=== PATIENT | male | born 1965 | race Caucasian/White ===

== ENCOUNTER 2024-02-13 20:53 | Emergency (ER) | payer BC, SELFPAY ==
[2024-02-13 21:18] VITALS: BP 130/54; PULSE 74; RESP 16; TEMP 37.3; O2SAT 98
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
--- OUTSIDE RECORDS SUMMARY | 2024-02-13 21:38 | XMS_ITS | Patient Health Record ---
Author Organization [facility] Address [address] [address] Care Team Providers Care Merchandising Consultant Name Role Phone None, None Primary Care Provider Unavailabl e ALLERGIES Allergen (clinical drug ingredient) Drug/Non Drug Allergy documented on EMR Reaction Allergy Type Onset Date Status Bee Sting anaphylaxis Allergy Active REASON FOR REFERRAL No Information PLAN OF TREATMENT No Information Insurance Providers Payer Name Payer Address Payer Phone Subscriber Number Group Number Insured Name Patient Relationship to Insured Coverage Start Date Coverage End Date [facility] [address] [place], [place] [id number] Jae Kraus Self - patient is the insured 0 MEDICAL (GENERAL) HISTORY Medical History History ICD Code *No Significant Medical History
--- OUTSIDE RECORDS SUMMARY | 2024-02-13 21:38 | XMS_ITS | Patient Health Record ---
Author Organization [facility] Address [address] [place] [phone] Care Team Providers Care Eligibility Services Representative Name Role Phone Amelia Gallego Primary Care Provider Amarilisa Adela Frances Unavailable Reason For Referral No Information Medications Medication SIG (Take, Route, Frequency, Duration) Notes Start Date End Date Status Suprep lkirgp-wduxtroim-ed gnesium/ sulfate 1 bottle as directed PO 2 dose prep for 1 day *please review for potential update for e-prescription and drug interaction check* 08/05/2017 Active Problems Problem Type SNOMED Code ICD Code Onset Dates Problem Status W/U Status Risk Notes Problem Preprocedural examination (814316202485453) Preprocedural examination (Z01.818) Active confirmed Problem Hemorrhoids (11492618) Hemorrhoids-other (K64.8) Active confirmed Plan Of Treatment Pending Test Test Name Order Date Colonoscopy 08/05/2017 Insurance Providers Payer Name Payer Address Payer Phone Subscriber Number Group Number Insured Name Patient Relationship to Insured Coverage Start Date Coverage End Date [employer] [place] [address] [place] [address] [id number] Jose Juan Kraus Self - patient is the insured Medical (General) History Medical History History ICD Code high cholesterol Surgical History Surgery Date(Month/Year) broken wrist knee surgery
[2024-02-13 22:25] VITALS: BP 123/93; PULSE 82; RESP 14; TEMP 36.6; O2SAT 97
[2024-02-14] MEDS: Acetaminophen 500 MG TAB 1000 MG PO (00:07)
[2024-02-14] MEDS: Ibuprofen 800 MG TAB PO (00:07)
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
[2024-02-14 01:36] VITALS: BP 129/78; PULSE 68; RESP 16; TEMP 36.8; O2SAT 99
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
== END 2024-02-14 02:48 | disposition home or self-care (01) ==
PROVIDERS: Emergency Provider Student in an Organized Health Care Education/Training Program
DX: S42.031A Displaced fracture of lateral end of right clavicle, initial encounter for closed fracture (principal); V18.4XXA Pedal cycle driver injured in noncollision transport accident in traffic accident, initial encounter; Y92.482 Bike path as the place of occurrence of the external cause; Y93.55 Activity, bike riding
CPT/HCPCS: 99283; 73030